=== PATIENT | female | born 1975 | race Caucasian/White ===

== ENCOUNTER 2017-10-20 08:22 | Emergency (ER) | payer MEDICAID ==
[~2017-10-20] VITALS: Ht 154.9 cm; Wt 95.5 kg
[2017-10-20] MEDS ORDERED: ONDANSETRON HCL 4 MG TABLET PO ONE (09:30)
[2017-10-20] MEDS ORDERED: IBUPROFEN 800 MG TABLET PO ONE (09:30)
[2017-10-20] MEDS ORDERED: KETOROLAC TROMETHAMINE 60 MG/2 ML VIAL IM ONE (09:45)
[2017-10-20] MEDS ORDERED: METHOCARBAMOL 500 MG TABLET PO ONE (10:45)
[2017-10-20 11:26] VITALS: BP 140/90
== END 2017-10-20 11:50 | disposition home or self-care (01) ==
LOC: EMS 08:25
DX: S16.1XXA Strain of muscle, fascia and tendon at neck level, initial encounter (principal); M54.5 Low back pain; K21.9 Gastro-esophageal reflux disease without esophagitis; W01.0XXA Fall on same level from slipping, tripping and stumbling without subsequent striking against object, initial encounter; Y93.89 Activity, other specified; Y92.89 Other specified places as the place of occurrence of the external cause; Y99.8 Other external cause status
CPT/HCPCS: 72100; 72170; 96372; 99284; J1885; Q0162

== ENCOUNTER 2018-03-02 10:58 | Emergency (ER) | payer MEDICAID ==
[~2018-03-02] VITALS: Ht 154.9 cm; Wt 86.4 kg
[2018-03-02] MEDS ORDERED: SODIUM CHLORIDE 0.9% 1,000 ML IV ONE (11:30)
[2018-03-02] MEDS ORDERED: ONDANSETRON HCL 4 MG/2 ML VIAL IVP ONE (11:30)
[2018-03-02] MEDS ORDERED: BARIUM SULFATE 0.1% SUSPENSION 450 ML BOTTLE PO ONE (11:30)
[2018-03-02] MEDS ORDERED: KETOROLAC TROMETHAMINE 30 MG/ML VIAL IVP ONE (11:30)
[2018-03-02] MEDS ORDERED: IOVERSOL 350 MG/ML 100 ML VIAL ONE (11:45)
[2018-03-02 12:04] LABS: EOSINOPHILS % (AUTO) 0.9 % (1.0-6.0); HEMATOCRIT 38.3 % (36-46); HEMOGLOBIN 13.2 g/dL (12.0-16.0); LYMPHOCYTES # (AUTO) 1.9 K/uL (1.0-4.8); LYMPHOCYTES % (AUTO) 30.7 % (22.0-44.0); MEAN CORPUSCULAR HEMOGLOBIN 31.3 pg (26.0-34.0); MEAN CORPUSCULAR HGB CONC 34.6 G/dL (31.0-37.0); MEAN CORPUSCULAR VOLUME 91 fL (80-100); MONOCYTES # (AUTO) 0.6 K/uL (0.1-1.0); MONOCYTES % (AUTO) 9.4 % (2.0-9.0); NEUTROPHILS # (AUTO) 3.6 K/uL (1.8-7.7); PLATELET COUNT (AUTO) 281 K/uL (150-450); RED BLOOD CELL COUNT(AUTO) 4.23 MIL/uL (4.00-5.20); RED CELL DISTRIBUTION WIDTH 14.2 % (11.5-14.5)
[2018-03-02 12:12] LABS: CALCIUM, TOTAL 8.6 mg/dL (8.8-10.5); CREATININE 1.08 mg/dL (0.60-1.30); POTASSIUM 4.1 mmol/L (3.5-5.1)
[2018-03-02 12:18] LABS: ALBUMIN 3.6 g/dL (3.4-5.0); BILIRUBIN,TOTAL 0.2 mg/dL (0.1-1.0); TOTAL PROTEIN, SERUM 7.6 g/dL (6.4-8.2)
[2018-03-02 12:26] LABS: APPEARANCE,URINE CLOUDY (CLEAR); BILIRUBIN,URINE NEGATIVE (NEGATIVE); GLUCOSE, URINE (UA) NEGATIVE (NEGATIVE); KETONES,URINE NEGATIVE (NEGATIVE); LEUKOCYTE ESTERASE ,URINE NEGATIVE (NEGATIVE); NITRATE,URINE NEGATIVE (NEGATIVE); OCCULT BLOOD,URINE NEGATIVE (NEGATIVE); PROTEIN,URINE NEGATIVE (NEGATIVE); UROBILINOGEN,URINE 0.2 mg/dL (<=1.0)
[2018-03-02] MEDS ORDERED: ACETAMINOPHEN 1000 MG/ISO-OSM 100 ML IV ONE (13:30)
[2018-03-02 16:00] VITALS: BP 115/67
== END 2018-03-02 16:15 | disposition home or self-care (01) ==
LOC: EMS 10:58
DX: K52.9 Noninfective gastroenteritis and colitis, unspecified (principal); K21.9 Gastro-esophageal reflux disease without esophagitis; Z98.84 Bariatric surgery status
CPT/HCPCS: 36415; 74177; 80053; 81003; 83690; 84703; 85025; 87045; 96361; 96365; 96375; 99285; J0131; J1885; J2405; J7030; Q9967; Z7610

== ENCOUNTER 2024-10-24 13:12 | Emergency (ER) | payer MEDICAID, OTHER ==
[~2024-10-24] VITALS: Ht 154.9 cm; Wt 90.9 kg
[2024-10-24 13:16] VITALS: BP 111/74; PULSE 93; RESP 18; TEMP 97.7; O2SAT 98
[2024-10-24 13:53] LABS: BASOPHILS % (AUTO) 0.8 % (0.0-2.0); EOSINOPHILS % (AUTO) 1.4 % (1.0-6.0); HEMATOCRIT 43.7 % (36-46); HEMOGLOBIN 14.5 g/dL (12.0-16.0); LYMPHOCYTES # (AUTO) 3.1 K/uL (1.0-4.8); LYMPHOCYTES % (AUTO) 43.2 % (22.0-44.0); MEAN CORPUSCULAR HEMOGLOBIN 32.3 pg (26.0-34.0); MEAN CORPUSCULAR HGB CONC 33.2 G/dL (31.0-37.0); MEAN CORPUSCULAR VOLUME 97 fL (80-100); MONOCYTES # (AUTO) 0.6 K/uL (0.1-1.0); MONOCYTES % (AUTO) 8.1 % (2.0-9.0); NEUTROPHILS # (AUTO) 3.4 K/uL (1.8-7.7); NEUTROPHILS % (AUTO) 46.5 % (40.0-70.0); PLATELET COUNT (AUTO) 346 K/uL (150-450); RED BLOOD CELL COUNT(AUTO) 4.49 MIL/uL (4.00-5.20); RED CELL DISTRIBUTION WIDTH 14.1 % (11.5-14.5); WHITE BLOOD COUNT (AUTO) 7.2 K/uL (4.5-11.0)
[2024-10-24] MEDS: MAG HYDROX/ALUMINUM HYD/SIMETH 30 ML SUSPENSION UDCUP PO ONE (14:14)
[2024-10-24] MEDS: FAMOTIDINE 20 MG/2 ML VIAL IVP ONE (14:15)
[2024-10-24] MEDS: MORPHINE SULFATE 2 MG/ML SYRINGE IVP ONE ×2 (14:15→15:40)
[2024-10-24] MEDS: SODIUM CHLORIDE 0.9% 1,000 ML IV ONE (14:15)
[2024-10-24] MEDS: ONDANSETRON HCL 4 MG/2 ML VIAL IVP ONE (14:15)
[2024-10-24 14:19] LABS: ANION GAP 14 mmol/L (8-16); CALCIUM, TOTAL 9.1 mg/dL (8.8-10.5); CARBON DIOXIDE 22 mmol/L (22-29); CHLORIDE 101 mmol/L (98-107); CREATININE 0.98 mg/dL (0.60-1.30); GLOMERULAR FILTR. RATE CALC > 60 mL/min (>60); GLUCOSE,RANDOM 88 mg/dL (70-110); POTASSIUM 3.7 mmol/L (3.5-5.1); SODIUM SERUM 137 mmol/L (136-145); UREA NITROGEN, BLOOD 17 mg/dL (7-18)
[2024-10-24 14:25] LABS: ALANINE AMINOTRANSFERASE 16 U/L (12-78); ALBUMIN 3.7 g/dL (3.4-5.0); ALKALINE PHOSPHATASE 81 U/L (46-116); ASPARTATE AMINOTRANSFERASE 18 U/L (15-37); BILIRUBIN,TOTAL 0.6 mg/dL (0.1-1.0); LIPASE 25 U/L (16-77); TOTAL PROTEIN, SERUM 7.7 g/dL (6.4-8.2)
[2024-10-24 15:12] LABS: HCG,QUANTITATIVE 1 mIU/mL (0-6)
[2024-10-24] MEDS ORDERED: ACET-3385 PO (17:12)
[2024-10-24] MEDS ORDERED: DOCU-385 PO (17:12)
[2024-10-24] MEDS: DOCUSATE SODIUM 100 MG CAPSULE PO ONE (17:12)
[2024-10-24] MEDS ORDERED: ONDA-104 PO (17:12)
== END 2024-10-24 17:29 | disposition home or self-care (01) ==
LOC: EMS 13:24
DX: K80.20 Calculus of gallbladder without cholecystitis without obstruction (principal); K59.00 Constipation, unspecified; G89.29 Other chronic pain; F32.A Depression, unspecified; K21.9 Gastro-esophageal reflux disease without esophagitis; Z98.84 Bariatric surgery status
CPT/HCPCS: 99285; 74177; 96374; 76705; 96375; 96361; 80048; 80076; 83690; 84702; 85025; 36415; 96376; J3490; J2270; J2405; J7030

== ENCOUNTER 2024-11-06 14:29 | Emergency (ER) | payer OTHER ==
[~2024-11-06] VITALS: Ht 157.5 cm; Wt 90.9 kg
[~2024-11-06 14:29] MED LIST: ACET-3385 PO; DOCU-385 PO; ONDA-104 PO
[2024-11-06 14:34] VITALS: TEMP 97.6
[2024-11-06 15:24] LABS: BASOPHILS % (AUTO) 0.5 % (0.0-2.0); HEMATOCRIT 39.1 % (36-46); HEMOGLOBIN 12.6 g/dL (12.0-16.0); LYMPHOCYTES # (AUTO) 1.6 K/uL (1.0-4.8); LYMPHOCYTES % (AUTO) 25.7 % (22.0-44.0); MEAN CORPUSCULAR HEMOGLOBIN 31.8 pg (26.0-34.0); MEAN CORPUSCULAR HGB CONC 32.3 G/dL (31.0-37.0); MEAN CORPUSCULAR VOLUME 98 fL (80-100); MONOCYTES # (AUTO) 0.4 K/uL (0.1-1.0); MONOCYTES % (AUTO) 6.9 % (2.0-9.0); NEUTROPHILS % (AUTO) 63.9 % (40.0-70.0); PLATELET COUNT (AUTO) 343 K/uL (150-450); RED BLOOD CELL COUNT(AUTO) 3.97 MIL/uL (4.00-5.20); RED CELL DISTRIBUTION WIDTH 14.1 % (11.5-14.5); WHITE BLOOD COUNT (AUTO) 6.3 K/uL (4.5-11.0)
[2024-11-06 15:34] LABS: ANION GAP 11 mmol/L (8-16); CALCIUM, TOTAL 8.9 mg/dL (8.8-10.5); CARBON DIOXIDE 24 mmol/L (22-29); CHLORIDE 108 mmol/L (98-107); CREATININE 0.89 mg/dL (0.60-1.30); GLOMERULAR FILTR. RATE CALC > 60 mL/min (>60); GLUCOSE,RANDOM 87 mg/dL (70-110); POTASSIUM 3.8 mmol/L (3.5-5.1); SODIUM SERUM 143 mmol/L (136-145); UREA NITROGEN, BLOOD 13 mg/dL (7-18)
[2024-11-06 15:41] LABS: ALANINE AMINOTRANSFERASE 23 U/L (12-78); ALBUMIN 3.3 g/dL (3.4-5.0); ALKALINE PHOSPHATASE 68 U/L (46-116); ASPARTATE AMINOTRANSFERASE 20 U/L (15-37); BILIRUBIN,TOTAL 0.3 mg/dL (0.1-1.0); LIPASE 36 U/L (16-77); TOTAL PROTEIN, SERUM 7.1 g/dL (6.4-8.2)
[2024-11-06] MEDS: MORPHINE SULFATE 2 MG/ML SYRINGE IVP ONE ×2 (15:58→18:06)
[2024-11-06] MEDS: ONDANSETRON HCL 4 MG/2 ML VIAL IVP ONE (15:58)
[2024-11-06 19:35] VITALS: BP 128/81; PULSE 94; RESP 18; O2SAT 97
== END 2024-11-06 19:56 | disposition home or self-care (01) ==
LOC: EMS 14:29
DX: G89.18 Other acute postprocedural pain (principal); K21.9 Gastro-esophageal reflux disease without esophagitis; F32.A Depression, unspecified; Z90.49 Acquired absence of other specified parts of digestive tract; Z98.84 Bariatric surgery status
CPT/HCPCS: 99285; 74177; 96374; 96375; 80048; 80076; 83690; 84703; 85025; 36415; 96376; J2270; J2405

== ENCOUNTER 2024-11-25 16:52 | Emergency (ER) | payer OTHER ==
[~2024-11-25] VITALS: Ht 154.9 cm; Wt 90.0 kg
[2024-11-25 16:58] VITALS: TEMP 97.8
[2024-11-25] MEDS: HYDROCODONE/ACETAMINOPHEN 5-325 MG TABLET PO ONE (18:55)
[2024-11-25] MEDS: LIDOCAINE 5% TRANSDERMAL PATCH TD ONE (18:55)
[2024-11-25] MEDS ORDERED: IBUP-1492 PO (21:46)
[2024-11-25] MEDS ORDERED: METH-659 PO (21:46)
[2024-11-25] MEDS ORDERED: HYDR-4062 PO (21:46)
[2024-11-25 21:59] VITALS: BP 122/82; PULSE 76; RESP 16; O2SAT 99
== END 2024-11-25 22:00 | disposition home or self-care (01) ==
LOC: EMS 16:52
DX: R07.89 Other chest pain (principal); M54.6 Pain in thoracic spine; F32.A Depression, unspecified; K21.9 Gastro-esophageal reflux disease without esophagitis; Z90.49 Acquired absence of other specified parts of digestive tract; Z98.84 Bariatric surgery status; W18.2XXA Fall in (into) shower or empty bathtub, initial encounter; Y93.89 Activity, other specified; Y92.89 Other specified places as the place of occurrence of the external cause; Y99.8 Other external cause status
CPT/HCPCS: 71101; 99283

== ENCOUNTER 2025-03-23 13:01 | Emergency (ER) | payer OTHER ==
[~2025-03-23] VITALS: Ht 154.9 cm; Wt 84.1 kg
[~2025-03-23 13:01] MED LIST changes: -DOCU-385 PO; +HYDR-4062 PO; +IBUP-1492 PO; +METH-659 PO; -ONDA-104 PO
[2025-03-23 13:09] VITALS: TEMP 97.4
[2025-03-23 13:53] LABS: EOSINOPHILS % (AUTO) 1.2 % (1.0-6.0); HEMATOCRIT 41.6 % (36-46); HEMOGLOBIN 13.9 g/dL (12.0-16.0); LYMPHOCYTES # (AUTO) 1.8 K/uL (1.0-4.8); LYMPHOCYTES % (AUTO) 34.6 % (22.0-44.0); MEAN CORPUSCULAR HEMOGLOBIN 32.2 pg (26.0-34.0); MEAN CORPUSCULAR HGB CONC 33.5 G/dL (31.0-37.0); MEAN CORPUSCULAR VOLUME 96 fL (80-100); MONOCYTES # (AUTO) 0.4 K/uL (0.1-1.0); MONOCYTES % (AUTO) 6.9 % (2.0-9.0); NEUTROPHILS % (AUTO) 56.3 % (40.0-70.0); PLATELET COUNT (AUTO) 264 K/uL (150-450); RED BLOOD CELL COUNT(AUTO) 4.32 MIL/uL (4.00-5.20); RED CELL DISTRIBUTION WIDTH 13.8 % (11.5-14.5); WHITE BLOOD COUNT (AUTO) 5.2 K/uL (4.5-11.0)
[2025-03-23 14:01] LABS: CALCIUM, TOTAL 8.8 mg/dL (8.8-10.5); CREATININE 1.08 mg/dL (0.60-1.30); POTASSIUM 3.7 mmol/L (3.5-5.1)
[2025-03-23 14:45] LABS: COVID AG,FIA SOURCE NASAL SWAB
[2025-03-23 15:11] LABS: SARS-COV2 (COVID) ANTIGEN,FIA Negative (Negative)
[2025-03-23 15:12] LABS: INFLUENZA TYPE A NEGATIVE FOR TYPE A (NEGATIVE); INFLUENZA TYPE B NEGATIVE FOR TYPE B (NEGATIVE)
[2025-03-23] MEDS: MORPHINE SULFATE 2 MG/ML SYRINGE IVP ONE (19:51)
[2025-03-23] MEDS: SODIUM CHLORIDE 0.9% 1,000 ML IV ONE (19:52)
[2025-03-23] MEDS: KETOROLAC TROMETHAMINE 30 MG/ML VIAL IVP ONE (21:38)
[2025-03-23] MEDS: METOCLOPRAMIDE HCL 5 MG/ML 2 ML VIAL IVP ONE (21:38)
[2025-03-23 21:45] VITALS: BP 123/72; PULSE 85; RESP 15; O2SAT 98
== END 2025-03-23 21:47 | disposition home or self-care (01) ==
LOC: EMS 13:09
DX: K52.9 Noninfective gastroenteritis and colitis, unspecified (principal); R11.2 Nausea with vomiting, unspecified; R05.9 Cough, unspecified; K21.9 Gastro-esophageal reflux disease without esophagitis; Z90.49 Acquired absence of other specified parts of digestive tract; Z98.84 Bariatric surgery status; Z20.822 Contact with and (suspected) exposure to COVID-19
CPT/HCPCS: 99285; 74176; 96374; 96361; 96375; 87426; 80048; 83690; 84703; 85025; 87804; 36415; J1885; J2765; J2270; J7030

== ENCOUNTER 2025-07-26 13:29 | Emergency (ER) | payer OTHER ==
[~2025-07-26] VITALS: Ht 160 cm; Wt 86.4 kg
[2025-07-26 13:34] VITALS: TEMP 97.9
[2025-07-26] MEDS ORDERED: GABA-1181 PO (13:35)
[2025-07-26] MEDS ORDERED: QUET200T PO (13:35)
[2025-07-26 13:59] LABS: PLATELET COUNT (AUTO) 277 K/uL (150-450); RED BLOOD CELL COUNT(AUTO) 3.81 MIL/uL (4.00-5.20); RED CELL DISTRIBUTION WIDTH 14.9 % (11.5-14.5); WHITE BLOOD COUNT (AUTO) 4.1 K/uL (4.5-11.0)
[2025-07-26] MEDS ORDERED: SODIUM CHLORIDE 0.9% 100 ML ONE (14:03)
[2025-07-26] MEDS ORDERED: IOHEXOL 350 MG/ML 100 ML VIAL ONE (14:03)
[2025-07-26] MEDS ORDERED: 0.9% SODIUM CHLORIDE 10 ML SYRINGE IVP ONE (14:03)
[2025-07-26 14:08] LABS: CALCIUM, TOTAL 8.4 mg/dL (8.8-10.5); CREATININE 0.81 mg/dL (0.60-1.30); GLOMERULAR FILTR. RATE CALC > 60 mL/min (>60); GLUCOSE,RANDOM 92 mg/dL (70-110); SODIUM SERUM 141 mmol/L (136-145); UREA NITROGEN, BLOOD 14 mg/dL (7-18)
[2025-07-26 14:16] LABS: ASPARTATE AMINOTRANSFERASE 29.0 U/L (15-37); TOTAL PROTEIN, SERUM 7.7 g/dL (6.4-8.2)
[2025-07-26] MEDS: IOHEXOL 9 MG/ML 500 ML BOTTLE PO ONE (15:02)
[2025-07-26] MEDS: SODIUM CHLORIDE 0.9% 1,000 ML IV ONE (15:02)
[2025-07-26] MEDS: ONDANSETRON HCL 4 MG/2 ML VIAL IVP ONE (15:02)
[2025-07-26 16:07] LABS: APPEARANCE,URINE CLEAR (CLEAR); GLUCOSE, URINE (UA) NEGATIVE (NEGATIVE); LEUKOCYTE ESTERASE ,URINE NEGATIVE (NEGATIVE); NITRATE,URINE NEGATIVE (NEGATIVE); OCCULT BLOOD,URINE NEGATIVE (NEGATIVE); SPECIFIC GRAVITIY, URINE 1.033 (1.003-1.030)
[2025-07-26 16:54] VITALS: BP 123/78; PULSE 78; RESP 18; O2SAT 99
== END 2025-07-26 18:09 | disposition home or self-care (01) ==
LOC: EMS 13:29
DX: K52.9 Noninfective gastroenteritis and colitis, unspecified (principal); R10.84 Generalized abdominal pain; R11.10 Vomiting, unspecified; F32.A Depression, unspecified; K21.9 Gastro-esophageal reflux disease without esophagitis; Z90.49 Acquired absence of other specified parts of digestive tract; Z79.899 Other long term (current) drug therapy; Z98.84 Bariatric surgery status
CPT/HCPCS: 99285; 74177; 96374; 96361; 96375; 80048; 80076; 81003; 83690; 84703; 85025; 36415; 96376; Q9967 ×2; J1171; J2405; J7030; J7050